=== PATIENT | male | born 1950 | race Caucasian/White ===

== ENCOUNTER 2019-06-07 06:13 | Day surgery (SDC) | payer OTHER ==
[~2019-06-07] VITALS: Ht 180.3 cm; Wt 81.1 kg
--- NOTE | ~2019-06-07 | O ---
[facility] [place] [address] OPERATIVE REPORT Name: LARRY ZIMMER Room #: 150-2 [facility]..#: [id number] Admission: 06/07/19 Attend Phys: Maximilian Feliz MD Discharge: Date of : 46 Report #: [id number] THIS REPORT FOR: cc: RAIZA GONZALES Physician not on staff Maximilian Feliz MD ~ CC: RAIZA Feliz Physician staff DATE OF SERVICE: 06/07/2019 PREOPERATIVE DIAGNOSES: 1. Left hallux valgus. 2. Left hammertoe deformity with dorsal extension contracture. POSTOPERATIVE DIAGNOSES: 1. Left hallux valgus. 2. Left hammertoe deformity with dorsal extension contracture. PROCEDURE: 1. Left foot Lapidus procedure with Lapiplasty. 2. Left foot Vick osteotomy, proximal phalanx great toe. 3. Left foot second toe proximal interphalangeal joint arthrodesis. 4. Left foot second metatarsophalangeal joint dorsal capsulotomy and tenotomy. SURGEON: Maximilian Feliz MD [employer]EM[employer]: Trudi Cuevas ANESTHESIA: General. ESTIMATED BLOOD LOSS: Minimal. DRAINS: No drains. TOURNIQUET TIME: 90 minutes. DESCRIPTION OF PROCEDURE: The patient brought to the operating room where he was placed under general anesthesia. Once under adequate general anesthesia, his left lower extremity was prepped and draped in sterile manner. The extremity was elevated, exsanguinated and a tourniquet placed to 300 mmHg. A dorsal incision just medial to the extensor hallucis longus was made overlying the first tarsometatarsal joint and dissected directly down to the joint, taking care to avoid the dorsal hallucal nerve. The first TMT joint was completely exposed, a sagittal saw was run through the joint along with an osteotome [address] [place] [address] OPERATIVE REPORT Name: LARRY ZIMMER [id number] Ad[facility]: 06/07/19 Attend Phys: Maximilian Feliz MD Discharge: Date of : 46 Report #: [id number] free the joint. A K-wire was placed for rotation and subsequently the C type clamp was placed across the metatarsals to allow for reduction of the intermetatarsal angle. Excellent reduction was achieved as verified under fluoroscopy. Distal incision was made in the patient's previous scar over the second TMT joint and dissected down through the soft tissue medially to expose the abductor hallucis. This was then subsequently released off of the lateral sesamoid. The joint capsule was released as well. This was done with a [place] blade. Once complete, the guide for the TMT joint cuts was then placed and subsequently fixed into place with a couple of pins. A sagittal saw was used to make the TMT joint cuts and subsequently the joint distractor was placed. The loose pieces of bone were removed with the rongeurs and the joint was then irrigated copiously and fenestrated with a drill. Compression was then placed across the joint. Excellent alignment was achieved and a compression pin was placed along with a compression screw across the joint. Subsequent fixation across the joint was achieved with 2 plates at 90 degree angles for fixation. Excellent fixation was achieved as verified under fluoroscopy. A distal incision over the medial eminence was then made. This was dissected down through the soft tissue. The joint capsule which was then incised in line with the incision exposing the medial eminence. The medial eminence was then subsequently resected with a sagittal saw. Just distal to this, a K-wire was placed transversely across the proximal phalanx of the great toe and using this as a guide, an Vick osteotomy was then performed removing 4 mm of bone there. This was then fixed with a 2.5 mm screw placed under fluoroscopic guidance. Excellent fixation and alignment was achieved as verified under fluoroscopy. Once complete, the wounds were irrigated copiously and the joint capsule was repaired with 0 Ethibond suture. A dorsal incision over the second toe proximal interphalangeal joint was then made. This was dissected down to the joint, which was partially fused in a malaligned position. This area was then resected with a sagittal saw and a 0.062 K-wire was then placed first antegrade out the toe and then proximally through the metatarsophalangeal joint. A dorsal capsulotomy and tenotomy had been performed at the metatarsophalangeal joint dorsally as well with tenotomy scissors. Excellent repair was achieved in this manner with excellent alignment. The wounds were then irrigated copiously and closed with 3-0 Vicryl in subcutaneous tissues and 3-0 nylon for the skin on the toes. [place] were used for the skin elsewhere. Wounds were dressed with Xeroform, 4 x 4s, and sterile soft compressive dressing was placed. Tourniquet was let down at 90 minutes. Toes were pink and warm with good capillary refill. There were no complications from the procedure. The patient tolerated the procedure well and went to the recovery room without incident. By: [id number] Maximilian Feliz MD /sampson
[~2019-06-07 06:13] MED LIST: ALLERGY MEDICAT25 MG PO; CALCIUM 600 +1 EA14 PO; MAGNESIUM400 M1 PO; MULTI VITAMIN1 EACH PO; SAW PALMETTO450 MG PO; SELENIMIN200 MCG PO; VITAMIN B-122500 MCG PO; VITAMIN D31250 MC1 PO
[2019-06-07 06:42] VITALS: BP 120/68
--- NOTE | 2019-06-07 08:45 | EKG ---
[facility] [place] [address] ELECTROCARDIOGRAM REPORT Name: LARRY ZIMMER Room #: 150-2 [facility] M.R.#: [id number] Admission: 06/07/19 Attend Phys: Maximilian Feliz MD Discharge: Date of : 46 Report #: [id number] THIS REPORT FOR: cc: RAIZA GONZALES Physician not on staff Stanislav Plunkett MD [facility] ~ THIS REPORT FOR: //name// [facility] Test Date: 2019-06-07 Test Time: 07:24:58 Pat Name: LARRY ZIMMER Department: Room: Gender: Bobbin Trucker: PAULIE : 1950 Requested By: Maximilian Feliz Order Number: [id number] MD: Stanislav Plunkett Measurements Intervals [place] Rate: 57 P: 44 WI: 173 QRS: 5 QRSD: 97 T: 30 QT: 447 QTc: 436 Interpretive Statements Sinus rhythm Probable anteroseptal infarct, old No previous ECG available for comparison Electronically Signed On 06-07-2019 8:43:24 CDT by Stanislav Plunkett [email or web address] <ELECTRONICALLY SIGNED> By: Stanislav Plunkett MD, [facility] 06/07/19 0843 3 3 Stanislav Plunkett MD, [facility] /EPI
[2019-06-07] MEDS ORDERED: PERCOCET 7.5-31 EAC1 PO (09:50)
[2019-06-07] MEDS ORDERED: ULTRAM 50MG TAB50 MG PO (10:02)
[2019-06-07 10:13] VITALS: BP 120/68
== END 2019-06-07 11:30 | disposition home or self-care (01) ==
LOC: TBA 06:13 → OR 06:13
DX: M20.12 Hallux valgus (acquired), left foot (principal); M20.42 Other hammer toe(s) (acquired), left foot; M24.575 Contracture, left foot; Z98.890 Other specified postprocedural states; Z79.899 Other long term (current) drug therapy; Z85.828 Personal history of other malignant neoplasm of skin; Z87.891 Personal history of nicotine dependence
CPT/HCPCS: 50010; 50101; 50386; 50951; 51412; 56524; 56526; 56527; 57091; 57180; 57910; 57911; 57912; 62110; 62900; 70005